=== PATIENT | female | born 1985 | race Caucasian/White ===

== ENCOUNTER 2016-12-31 13:17 | Observation (INO) | payer OTHER ==
[~2016-12-31 13:17] MED LIST: FLAX OIL1000 MG PO; IBUPROFEN800 MG PO; NORCO 5/325 TAB1 TAB PO; OSTERA TABLET1 EACH PO; PRENATAL1 TAB; PROTONIX20 MG
[2016-12-31] MEDS ORDERED: PRENA1 CHEW TA1.4 M1 PO (14:08)
[2016-12-31] MEDS ORDERED: RANITIDINE HCL75 M1 PO (14:08)
== END 2016-12-31 15:40 ==
LOC: LDR 13:17
PROVIDERS: ADMIT Obstetrics & Gynecology
DX: Z03.71 Encounter for suspected problem with amniotic cavity and membrane ruled out (principal); Z3A.38 38 weeks gestation of pregnancy; Z79.899 Other long term (current) drug therapy

== ENCOUNTER 2017-01-08 07:04 | Inpatient (IN) | payer OTHER ==
[~2017-01-08 07:04] MED LIST changes: +PRENA1 CHEW TA1.4 M1 PO; +RANITIDINE HCL75 M1 PO
[2017-01-08 12:00] LABS: BASO % 0.1 % (0-2); EOSINOPHIL ABSOLUTE COUNT 0.1 tho/cmm (0.0-0.7); HCT-HEMATOCRIT 37.1 % (34.0-49.0); HGB-HEMOGLOBIN 13.2 gm/dl (12.0-15.5); IMMATURE GRANULOCYTES ABSOLUTE 0.15 tho/cmm (0-0.03); IMMATURE GRANULOCYTES PERCENT 1.5 % (0-0.3); LYMPH % 18.6 % (20-45); LYMPH ABSOLUTE COUNT 1.9 tho/cmm (0.8-4.5); MCH (MEAN CORPUSCULAR HGB) 33.1 pg (28.0-32.0); MCHC MEAN CORPUSCULAR HGB CONC 35.6 % (32.0-36.0); MEAN PLATELET VOLUME 10.1 cmc (9.4-12.4); MONO % 8.2 % (0-12); MONOCYTE ABSOLUTE COUNT 0.8 tho/cmm (0.0-1.2); NEUTROPHIL ABSOLUTE COUNT 7.1 tho/cmm (1.6-8.0); NEUTROPHIL-AUTOMATED 7.1 tho/cmm (1.6-8.0); NEUTROPHILS % 70.6 % (40-80); PLATELET COUNT 159 tho/cmm (150-450); RED BLOOD COUNT 3.99 mil/cmm (4.00-5.20); RED CELL DISTRIBUTION WIDTH 13.2 % (12.4-16.4)
[2017-01-09 05:52] LABS: BASO % 0.2 % (0-2); EOS % 1.1 % (0-7); EOSINOPHIL ABSOLUTE COUNT 0.1 tho/cmm (0.0-0.7); HCT-HEMATOCRIT 32.8 % (34.0-49.0); HGB-HEMOGLOBIN 11.4 gm/dl (12.0-15.5); IMMATURE GRANULOCYTES ABSOLUTE 0.12 tho/cmm (0-0.03); LYMPH % 21.6 % (20-45); LYMPH ABSOLUTE COUNT 2.5 tho/cmm (0.8-4.5); MCH (MEAN CORPUSCULAR HGB) 32.5 pg (28.0-32.0); MCHC MEAN CORPUSCULAR HGB CONC 34.8 % (32.0-36.0); MCV (MEAN CELL VOLUME) 93.4 fl (82.0-96.0); MONO % 8.4 % (0-12); NEUTROPHILS % 67.7 % (40-80); PLATELET COUNT 156 tho/cmm (150-450); RED BLOOD COUNT 3.51 mil/cmm (4.00-5.20); RED CELL DISTRIBUTION WIDTH 13.1 % (12.4-16.4); WHITE BLOOD COUNT 11.8 tho/cmm (4.0-10.0)
[2017-01-10] MEDS ORDERED: IBUPROFEN800 M1 PO (01:22)
== END 2017-01-10 12:20 | DRG 775 ==
LOC: LDR 07:04 → OBGD 21:17
PROVIDERS: ADMIT Advanced Practice Midwife
PROC: 10E0XZZ Delivery of Products of Conception, External Approach (ICD-10-PCS; principal; 2017-01-08)
PROC: 10907ZC Drainage of Amniotic Fluid, Therapeutic from Products of Conception, Via Natural or Artificial Opening (ICD-10-PCS; 2017-01-08)
PROC: 4A1HXCZ Monitoring of Products of Conception, Cardiac Rate, External Approach (ICD-10-PCS; 2017-01-08)
PROC: 3E033VJ Introduction of Other Hormone into Peripheral Vein, Percutaneous Approach (ICD-10-PCS; 2017-01-08)
DX: O80 Encounter for full-term uncomplicated delivery (principal); Z37.0 Single live birth; Z3A.40 40 weeks gestation of pregnancy
CPT/HCPCS: J1200; J2370; J2590